=== PATIENT | male | born 1945 | race Caucasian/White ===

== ENCOUNTER 2025-10-07 07:39 | Day surgery (SDC) | payer MEDICARE, OTHER ==
--- NOTE | 2025-09-30 12:17 | ELECTROCARDIOGRAPH REPORT ---
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 Goldy West Measurements Intervals Winn Rate: 76 P: -36 VT: 213 QRS: -52 QRSD: 158 T: 52 QT: 411 QTc: 463 Interpretive Statements Sinus rhythm Borderline prolonged VT interval RBBB and LAFB Left ventricular hypertrophy Electronically Signed On 09-30-2025 19:57:[address] Goldy West Please click the below link to view image of tracing.
[2025-09-30 12:27] LABS: MEAN PLATELET VOLUME 7.7 FL (7.4-10.4); PRE OP HEMATOCRIT 42.3 % (42.0-52.0); PRE OP HEMOGLOBIN 14.1 g/dL (14.0-17.9); PRE OP PLATELET COUNT 270 X10'3 (140-440); PRE OP WHITE BLOOD COUNT 8.4 10'3 (4.8-10.8); RED CELL DISTRIBUTION WIDTH 13.9 % (11.5-14.5)
[2025-09-30 13:50] LABS: CREATININE 0.99 MG/DL (0.60-1.10); PRE OP ALT 22 U/L (30-65); PRE OP ANION GAP 11 (8-16); PRE OP AST 17 U/L (10-37); PRE OP BILIRUB, TOTAL 0.4 MG/DL (0.0-1.0); PRE OP GLUCOSE 175 MG/DL (70-104); PRE OP POTASSIUM 4.2 MMOL/L (3.4-5.1); PRE OP SODIUM 145 MMOL/L (135-145); TOTAL CARBON DIOXIDE 28.2 MMOL/L (24-32); eGFR 73 ML/MIN
[~2025-10-07] VITALS: Ht 182.9 cm; Wt 90.6 kg
[2025-10-07] MEDS: ceFAZolin 2gm/dext,iso 50mL 50 ML IV ONE (05:30)
[~2025-10-07 07:39] MED LIST: ALPH600C8 PO; AMLO2.5T2 PO; ATOR20TA PO; BUPIVAcaine 2.5mg/ml inj 50ml vial (contains preservative) ONE; CEYLON CINNAMON PO; CHOL500061 PO; CHRO400T8 PO; DIGESTIVE ENZYME PO; EMPA25TA PO; ENAL10TA78 PO; FISH1CAP15 PO; FLAX10007 PO; GABA-530 PO; GARL500C6 PO; MAGN100T6 PO; METF-900 PO; MULT-1085 PO; SEMA1PEN5 SUBCUT; SUPER BETA PROSTATE PO; UBID100C51 PO; ZINC220T3 PO
[2025-10-07 07:50] VITALS: BP 151/58; PULSE 69; RESP 16; TEMP 97.2; O2SAT 99
[2025-10-07] MEDS: ringers solution, lacted 1,000 ML IV SCH (08:12)
[2025-10-07] MEDS ORDERED: midazolam 1 mg/ML 2ml injection ONE (09:36)
[2025-10-07] MEDS ORDERED: acetaminophen 1,000mg/100ml IV 100 ML IV ONE (09:38)
[2025-10-07] MEDS ORDERED: LIDOcaine 2% (20mg/ml) 5ml vial ONE ×2 (09:45→09:46)
[2025-10-07] MEDS ORDERED: propofol 10mg/ml 20ml vial IV ONE (09:46)
[2025-10-07 10:07] VITALS: BP 161/77; PULSE 67; RESP 18; O2SAT 98
[2025-10-07 10:20] VITALS: BP 142/76; PULSE 61; RESP 10; O2SAT 98
[2025-10-07 10:30] VITALS: BP 140/62; PULSE 63; RESP 8; O2SAT 98
[2025-10-07 10:40] VITALS: BP 140/64; PULSE 60; RESP 14; O2SAT 98
[2025-10-07 10:50] VITALS: BP 129/65; PULSE 59; RESP 10; O2SAT 97
--- NOTE | 2025-10-07 11:04 | OPERATIVE REPORT ---
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 After discussing the with the patient about the options regarding this they opted for definitive treatment with a amputation of the fingertip. Risks and benefits were discussed with the patient some of which include but are not limited to infection, bleeding, nerve pain, phantom pain, incomplete resection of tumor. He agreed to proceed. Once in the operating room the block was given along with the antibiotics. The arm was prepped and draped in usual manner. An incision was made on the short side of the dorsal edge and with a long volar flap to create good skin coverage. Dissection was taken around and amputation was made to just distal to the tendon insertion at the distal phalanx. Fingertip was sent to pathology for identification. Neurectomies were performed allowing the digital nerves to retract back into the finger. Skin edges were trimmed and after irrigation closure was performed using a Prolene suture. Marcaine was injected at the base of the digit and a dressing was applied. The tourniquet was released the hand perfused well. He was taken to recovery room in stable condition BRYSON BRICE Jr., MD Oct 07, 2025 11:04
== END 2025-10-07 11:07 | disposition home or self-care (01) ==
LOC: PAS 07:39 → EDSTATUS 10:45 → PAS 11:07
PROVIDERS: ATTEND Orthopaedic Surgery Hand Surgery
DX: C44.622 Squamous cell carcinoma of skin of right upper limb, including shoulder (principal); I45.2 Bifascicular block; I10 Essential (primary) hypertension; E11.9 Type 2 diabetes mellitus without complications; E78.5 Hyperlipidemia, unspecified; G47.30 Sleep apnea, unspecified; Z87.891 Personal history of nicotine dependence; Z79.84 Long term (current) use of oral hypoglycemic drugs; Z79.899 Other long term (current) drug therapy; Z96.642 Presence of left artificial hip joint; Z98.890 Other specified postprocedural states
CPT/HCPCS: 26951; 36415; 80053; 82948; 85025; 93005; J0131; J2003; J2250; J2704; J3490; J7030; J7120; Z7506; Z7512; A4618; A6449; A7000